=== PATIENT | female | born 1990 | race African-American/Black ===

== ENCOUNTER 2017-01-04 11:56 | Observation (INO) | payer OTHER ==
[~2017-01-04] VITALS: Ht 170.2 cm; Wt 81.2 kg
[2017-01-04] MEDS ORDERED: PREN-88 PO (12:50)
[2017-01-04 13:27] LABS: INR 0.9; PARTIAL THROMBOPLASTIN TIME 24.9 sec (24.0-34.0); PROTHROMBIN TIME 9.8 sec
[2017-01-04 14:34] LABS: HEMATOCRIT 34.4 % (36.0-48.0); HEMOGLOBIN 11.4 g/dL (12.0-16.0); MEAN CORPUSCULAR HEMOGLOBIN 28.3 pg (28.0-32.0); MEAN CORPUSCULAR VOLUME 85.4 fL (81.0-99.0); PLATELET 212 x1000/uL (130-400); RED BLOOD CELL COUNT 4.03 mill/uL (4.2-5.4); RED CELL DISTRIBUTION WIDTH 13.5 % (11.6-14.6)
== END 2017-01-04 18:35 | disposition home or self-care (01) ==
LOC: L&D 11:56
PROVIDERS: ADMIT Obstetrics & Gynecology; ATTEND Obstetrics & Gynecology
DX: O26.893 Other specified pregnancy related conditions, third trimester (principal); R10.9 Unspecified abdominal pain; Z3A.36 36 weeks gestation of pregnancy
CPT/HCPCS: 36415; 76805; 76818; 85027; 85610; 85730; G0378